=== PATIENT | female | born 1955 | race Caucasian/White ===

== ENCOUNTER → 2019-12-21 13:18 | Outpatient (BNVA) | payer MEDICARE, OTHER, SELFPAY | PROVIDERS: Family Provider Family Medicine; PCP Family Medicine; Visit Provider Family Medicine | DX: E87.1 Hypo-osmolality and hyponatremia (principal) | CPT/HCPCS: 80048; 80061 ==

== ENCOUNTER → 2020-11-29 00:01 | Outpatient (BNVA) | payer MEDICARE, OTHER, SELFPAY | PROVIDERS: Family Provider Family Medicine; PCP Family Medicine; Visit Provider Family Medicine | DX: I10 Essential (primary) hypertension (principal); M19.90 Unspecified osteoarthritis, unspecified site; E78.2 Mixed hyperlipidemia; M79.7 Fibromyalgia; M89.49 Other hypertrophic osteoarthropathy, multiple sites | CPT/HCPCS: 80053; 80061 ==

== ENCOUNTER → 2021-06-06 18:00 | Outpatient (BNVA) | payer MEDICARE, OTHER, SELFPAY | PROVIDERS: Family Provider Family Medicine; PCP Family Medicine; Visit Provider Family Medicine | DX: I10 Essential (primary) hypertension (principal); K21.9 Gastro-esophageal reflux disease without esophagitis; E78.5 Hyperlipidemia, unspecified; M19.90 Unspecified osteoarthritis, unspecified site; M79.7 Fibromyalgia | CPT/HCPCS: 80053; 85007; 85027 ==

== ENCOUNTER → 2021-06-13 14:39 | Outpatient (BNVA) | payer MEDICARE, OTHER, SELFPAY | PROVIDERS: Family Provider Family Medicine; PCP Family Medicine; Referring Provider Family Medicine; Visit Provider Family Medicine | DX: K21.9 Gastro-esophageal reflux disease without esophagitis (principal); Z79.899 Other long term (current) drug therapy | CPT/HCPCS: 87338 ==

== ENCOUNTER → 2022-06-13 14:17 | Outpatient (BNVA) | payer MEDICARE, OTHER, SELFPAY | PROVIDERS: Family Provider Family Medicine; PCP Family Medicine; Visit Provider Family Medicine | DX: I10 Essential (primary) hypertension (principal); M19.90 Unspecified osteoarthritis, unspecified site; K21.9 Gastro-esophageal reflux disease without esophagitis; M79.7 Fibromyalgia; E78.2 Mixed hyperlipidemia; M89.49 Other hypertrophic osteoarthropathy, multiple sites | CPT/HCPCS: 80053; 80061 ==

== ENCOUNTER → 2023-06-11 14:45 | Outpatient (BNVA) | payer MEDICARE, OTHER, SELFPAY | PROVIDERS: Family Provider Family Medicine; PCP Family Medicine; Visit Provider Family Medicine | DX: E78.2 Mixed hyperlipidemia; I10 Essential (primary) hypertension | CPT/HCPCS: 80053; 80061 ==

== ENCOUNTER → 2023-12-30 13:52 | Outpatient (BNVA) | payer MEDICARE, OTHER, SELFPAY | PROVIDERS: Family Provider Family Medicine; PCP Family Medicine; Referring Provider Family Medicine; Visit Provider Family Medicine | DX: M47.896 Other spondylosis, lumbar region (principal); M54.50 Low back pain, unspecified | CPT/HCPCS: 72100 ==

== ENCOUNTER → 2024-06-09 13:28 | Outpatient (BNVA) | payer MEDICARE, OTHER, SELFPAY | PROVIDERS: Family Provider Family Medicine; PCP Family Medicine; Visit Provider Family Medicine | DX: I10 Essential (primary) hypertension (principal); J44.9 Chronic obstructive pulmonary disease, unspecified; E78.2 Mixed hyperlipidemia | CPT/HCPCS: 71046; 80053; 80061; 85025 ==

== ENCOUNTER 2024-12-18 13:06 | Outpatient (CLI) | payer MEDICARE, OTHER, SELFPAY ==
--- NOTE | 2024-12-18 13:00 | MR_ITS ---
WS: [id number] MRI LUMBAR SPINE NONCONTRAST HISTORY: Low back pain. COMPARISON: Radiograph 12/30/2023 TECHNIQUE: Sagittal and axial multisequence imaging is submitted. Severe, acute vertebral plana compression fracture at T11 without retropulsion. 50% loss of height. Fracture extends into the posterior elements. Mild acute T12 compression fracture by 10% without retropulsion. Fracture extends into the posterior elements. L1 chronic compression fracture with 3 mm posterior retropulsion of the superior endplate. Approximately 20% loss of height. Disc spaces are narrowed and desiccated. Conus terminates normally at L1-2 disc level. T10-T11: Encroachment upon the ventral thecal sac with facet and ligamentum flavum hypertrophy. Bilateral foraminal stenosis. T11-12: Mild annular disc bulging and osteophytic ridging. Bilateral facet arthritis and ligamentum flavum hypertrophy. Moderate bilateral foraminal stenosis with mild central stenosis. T12-L1: Retropulsion of the posterior superior endplate of L1 encroaches upon the ventral thecal sac. There is contact on the conus with moderate central stenosis. Mild foraminal stenosis. L1-L2: Facet arthritis. No stenosis. L2-L3: Annular disc bulge slightly asymmetric to the LEFT. Moderate ligamentum flavum and facet arthritis. Broad-based LEFT foraminal disc bulging. Mild central, bilateral subarticular recess and foraminal stenosis. L3-L4: Diffuse annular disc bulging with ligamentum flavum and facet arthritis. Disc encroachment upon the ventral thecal sac. Broad-based central disc protrusion extends into the subarticular recesses. Moderate central, bilateral subarticular recess and foraminal stenosis. L4-L5: Diffuse annular disc bulging with osteophytic ridging. Small central disc protrusion. Mild ligamentum flavum and facet arthritis. Mild central, bilateral subarticular recess and moderate foraminal stenosis, RIGHT greater than LEFT. L5-S1: Mild annular disc bulging. No stenosis. Paravertebral soft tissues are normal. MR/MR lumbar spine wo con* [id number] IMPRESSION: 1. Severe acute T11 compression fracture without retropulsion. 50% loss of hei ght. 2. Mild acute T12 compression fracture by 10%. 3. Chronic L1 compression fracture by 20% loss of height. 3 mm retropulsion of the posterior superior endplate. 4. Seen on the localizer image is central stenosis at T10-11. This should be f urther evaluated by MRI thoracic spine as the cord does appear to be compressed and distorted by the stenosis. This would be better evaluated by dedicated MRI thoracic spine. 5. T11-12: Moderate bilateral foraminal stenosis with mild central stenosis. 6. T12-L1: Moderate central and mild foraminal stenosis. 7. L2-3: Broad-based LEFT foraminal disc protrusion. Mild central, bilateral s ubarticular recess and foraminal stenosis. 8. L3-4: Moderate central, bilateral subarticular recess and foraminal stenosi s. Broad-based central disc protrusion extends into the subarticular recesses. 9. L4-5: Mild central, bilateral subarticular recess and moderate foraminal st enosis, RIGHT greater than LEFT.
== END 2024-12-18 13:07 | disposition home or self-care (01) ==
LOC: RAD 13:07
PROVIDERS: Family Provider Family Medicine; PCP Family Medicine; Visit Provider Family Medicine
DX: M51.369 Other intervertebral disc degeneration, lumbar region without mention of lumbar back pain or lower extremity pain (principal); M48.54XA Collapsed vertebra, not elsewhere classified, thoracic region, initial encounter for fracture; M48.56XA Collapsed vertebra, not elsewhere classified, lumbar region, initial encounter for fracture; M48.04 Spinal stenosis, thoracic region; R93.7 Abnormal findings on diagnostic imaging of other parts of musculoskeletal system; M51.26 Other intervertebral disc displacement, lumbar region; M48.061 Spinal stenosis, lumbar region without neurogenic claudication; M51.34 Other intervertebral disc degeneration, thoracic region; M47.894 Other spondylosis, thoracic region; M47.895 Other spondylosis, thoracolumbar region; M51.379 Other intervertebral disc degeneration, lumbosacral region without mention of lumbar back pain or lower extremity pain
CPT/HCPCS: 72148

== ENCOUNTER → 2025-01-21 12:43 | Outpatient (BNVA) | payer MEDICARE, OTHER, SELFPAY | PROVIDERS: Family Provider Family Medicine; PCP Family Medicine; Visit Provider Orthopaedic Surgery | DX: M54.9 Dorsalgia, unspecified (principal) | CPT/HCPCS: 72110; 99203 ==

== ENCOUNTER → 2025-06-09 14:55 | Outpatient (BNVA) | payer MEDICARE, OTHER, SELFPAY | PROVIDERS: Family Provider Family Medicine; PCP Family Medicine; Visit Provider Family Medicine | DX: I10 Essential (primary) hypertension (principal); E78.2 Mixed hyperlipidemia | CPT/HCPCS: 80053; 80061 ==